=== PATIENT | female | born 1950 | race Caucasian/White ===

== ENCOUNTER 2016-11-02 20:32 | Emergency (ER) | payer MEDICARE ==
[2016-11-02] MEDS ORDERED: KETOROLAC 30 MG/ML VIAL IVP ONE (21:06)
[2016-11-02 21:17] LABS: BASO % 0.3 % (0-6); EOS % 2.1 % (0-6); GRAN % 57.3 % (47-80); HEMATOCRIT 35.5 % (35.0-47.0); HEMOGLOBIN 12.1 gm/dl (11.6-16.0); LYMPH % 35.1 % (16-45); MEAN CELL VOLUME 92.2 fl (81-97); MEAN CORPUSCULAR HEMOGLOBIN 31.4 pg (27-33); MEAN CORPUSCULAR HGB CONC 34.1 g/dl (32-36); MEAN PLATELET VOLUME 10.9 fl (7.4-10.4); MONO % 5.2 % (0-9); PLATELET COUNT 204 K/uL (130-400); RED BLOOD COUNT 3.85 M/uL (3.80-5.40); RED CELL DISTRIBUTION WIDTH 12.5 % (11.5-14.5); WHITE BLOOD COUNT W/O DIFF 6.6 K/uL (4.2-12.2)
[2016-11-02 21:31] LABS: ANION GAP 9.9 (7-16); BLOOD UREA NITROGEN 19 mg/dL (7-17); CARBON DIOXIDE 26.1 mmol/L (22-30); CREATINE PHOSPHOKINASE 54 U/L (30-135); CREATININE 0.8 mg/dL (0.52-1.04); EST GLOMERULAR FILTRATION RATE > 60 ml/min; GLUCOSE,RANDOM 95 mg/dL (70-110)
[2016-11-02 21:43] LABS: CKMB 0.9 ug/L (0-6)
[2016-11-02 21:46] LABS: TROPONIN I < 0.012 ng/mL (0.00-0.034)
[2016-11-02] MEDS ORDERED: NITROGLYCERIN 0.4MG SL TABLET #25 BTL SL ONE (22:44)
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
[2016-11-02] MEDS: NITROGLYCERIN 0.4MG SL TABLET #25 BTL SL ONE ×2 (23:26→23:36)
[2016-11-03] MEDS ORDERED: ACETAMINOPHEN 500 MG TABLET PO ONE (01:18)
--- NOTE | 2016-11-05 09:52 | CT ANGIOGRAM REPORT ---
EXAM: CT ANGIOGRAPHY OF THE THORAX HISTORY: SHORTNESS OF BREATH AND CHEST PAIN. TECHNIQUE: CT angiography of the thorax was performed following intravenous administration of 85 ml of Omnipaque 350 contrast. Coronal and sagittal post process MIP images were performed on an independent workstation as part of this examination. Comparison: Chest x-ray dated 09/20/16. FINDINGS: No pulmonary emboli are seen. No aortic aneurysm or aortic dissection. No enlarged mediastinal or hilar lymph nodes identified. Linear atelectatic or fibrotic changes seen at the left lung base and at the medial margin of the right middle lobe. No lung mass or lung nodule identified. The heart is enlarged. There is no pleural or pericardial effusion. Limited upper abdominal images demonstrate parapelvic renal cysts on the left. The upper abdomen is otherwise unremarkable. IMPRESSION: 1. NO PULMONARY EMBOLISM. NO AORTIC ANEURYSM OR AORTIC DISSECTION. NO ACUTE THORACIC PROCESS. 2. THE HEART IS ENLARGED. 3. THERE ARE A FEW CORONARY ARTERY CALCIFICATIONS PRESENT. 4. SMALL AREAS OF ATELECTASIS OR SCARRING AT THE LUNG BASES BILATERALLY. 5. SEE ABOVE FOR FULL DISCUSSION. JOB NUMBER: [id number] [facility]
== END 2016-11-03 01:37 | disposition short-term general hospital (02) ==
LOC: ER 20:32
DX: R07.9 Chest pain, unspecified (principal); R11.0 Nausea; R06.02 Shortness of breath; R42 Dizziness and giddiness
CPT/HCPCS: 99285 ×2; 96374; 82550; 85025; 82553; 84484; 80048; 85379; 71275; 93005; 93010; Q9967; J1885

== ENCOUNTER 2016-11-10 12:16 | Emergency (ER) | payer MEDICARE ==
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
--- NOTE | 2016-11-12 10:05 | RADIOLOGY REPORT ---
EXAM: LEFT ELBOW, THREE VIEWS HISTORY: PAIN AND REDDENING ANTECUBITAL LEFT ELBOW FOR FOUR DAYS. ASSESS FOR FOREIGN BODY. TECHNIQUE: Three views of the left elbow were obtained. Comparison: None. Encounter: Initial. FINDINGS: No radiodense foreign body. No fracture. No soft tissue gas. Equivocal displacement of the left anterior humeral fat pad. IMPRESSION: 1. NO ACUTE OSSEOUS ABNORMALITY OF THE LEFT ELBOW. WITH NO RADIODENSE FOREIGN BODIES. 2. EQUIVOCAL SMALL LEFT ELBOW JOINT EFFUSION. JOB NUMBER: [id number] MTDD
== END 2016-11-10 14:10 | disposition home or self-care (01) ==
LOC: ER 12:16
DX: T80.1XXA Vascular complications following infusion, transfusion and therapeutic injection, initial encounter (principal); M25.522 Pain in left elbow; I80.8 Phlebitis and thrombophlebitis of other sites
CPT/HCPCS: 99283

== ENCOUNTER 2018-05-15 12:00 | Emergency (ER) | payer MEDICARE ==
[2018-05-15 12:47] LABS: BASO % 0.4 % (0-6); EOS % 3.1 % (0-6); GRAN % 59.3 % (47-80); HEMATOCRIT 38.5 % (35.0-47.0); HEMOGLOBIN 12.6 gm/dl (11.6-16.0); LYMPH % 31.7 % (16-45); MEAN CELL VOLUME 91.9 fl (81-97); MEAN CORPUSCULAR HEMOGLOBIN 30.1 pg (27-33); MEAN CORPUSCULAR HGB CONC 32.7 g/dl (32-36); MEAN PLATELET VOLUME 10.5 fl (7.4-10.4); MONO % 5.5 % (0-9); PLATELET COUNT 170 K/uL (130-400); RED BLOOD COUNT 4.19 M/uL (3.80-5.40); RED CELL DISTRIBUTION WIDTH 12.7 % (11.5-14.5); WHITE BLOOD COUNT W/O DIFF 4.8 K/uL (4.2-12.2)
[2018-05-15 12:59] LABS: PROTHROMBIN TIME (PATIENT) 9.9 SECONDS (9.5-12.1)
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
[2018-05-15 13:40] LABS: BLOOD UREA NITROGEN 15 mg/dL (8-23); CREATININE 0.7 mg/dL (0.5-0.9); EST GLOMERULAR FILTRATION RATE > 60 mL/min
[2018-05-15 13:42] LABS: GLUCOSE,RANDOM 98 mg/dL (74-109)
--- NOTE | 2018-05-17 21:05 | US VENOUS DOPPLER REPORT ---
EXAM: ULTRASOUND VENOUS DOPPLER LOWER EXT RT HISTORY: PAIN AND SWELLING. TECHNIQUE: Sonographic evaluation of the deep venous system of the right lower extremity was performed with the addition of Doppler, compression, and augmentation. FINDINGS: There is normal compression, augmentation, and blood flow identified in the deep venous system of the right lower extremity. IMPRESSION: NEGATIVE FOR DEEP VEIN THROMBOSIS IN THE RIGHT LOWER EXTREMITY. JOB NUMBER: [id number] MTDD
== END 2018-05-15 15:13 | disposition home or self-care (01) ==
LOC: ER 12:00
DX: L03.115 Cellulitis of right lower limb (principal); M79.661 Pain in right lower leg
CPT/HCPCS: 80048; 85025; 85379; 85610; 99283; 99284

== ENCOUNTER 2018-08-06 12:35 | Emergency (ER) | payer MEDICARE ==
[2018-08-06] MEDS ORDERED: KETOROLAC 30 MG/ML VIAL IM ONE (12:53)
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
--- NOTE | 2018-08-08 07:23 | RADIOLOGY REPORT ---
DATE: 08/06/2018. EXAM: LEFT FOOT. HISTORY: PAIN. TECHNIQUE: Three views of the left foot were provided. FINDINGS: No evidence of fracture or dislocation. There is osteopenia. There is degenerative change of the tarsal bones. There is a large calcaneal spur. IMPRESSION: 1. OSTEOPENIA. 2. NO EVIDENCE OF FRACTURE. 3. SOFT TISSUE SWELLING. 4. LARGE CALCANEAL SPUR. Job Number: [id number] [facility]
--- NOTE | 2018-08-08 07:32 | CT SCAN REPORT ---
DATE: 08/06/2018. EXAM: CT OF THE CHEST WITHOUT CONTRAST. HISTORY: Injury. TECHNIQUE: Sequential axial images were obtained from the thoracic inlet through the bilateral adrenal glands without intravenous contrast administration. FINDINGS: Mediastinal vasculature appears normal. No mediastinal or hilar lymphadenopathy. The heart and pericardium appear normal. There is scarring in the lung bases. No infiltrate or pleural effusion. No pneumothorax. Exaggerated thoracic kyphosis. Single sclerotic focus in the mid thoracic spine. No evidence of fracture. The sternum is intact. No rib fracture deformities are appreciated. IMPRESSION: NO ACUTE INTRATHORACIC DISEASE PROCESS. NO FRACTURE DEFORMITY. [facility] [id number] [facility]
== END 2018-08-06 14:06 | disposition home or self-care (01) ==
LOC: ER 12:35
DX: S20.211A Contusion of right front wall of thorax, initial encounter (principal); M79.675 Pain in left toe(s); W01.198A Fall on same level from slipping, tripping and stumbling with subsequent striking against other object, initial encounter; Y92.481 Parking lot as the place of occurrence of the external cause; Z87.891 Personal history of nicotine dependence
CPT/HCPCS: 99283; 96372; 99284; 73630; 71250; J1885

== ENCOUNTER 2019-01-18 10:08 | Emergency (ER) | payer MEDICARE ==
[2019-01-18] MEDS ORDERED: ORPHENADRINE CITRATE 60MG/2ML VIAL IM ONE (10:42)
[2019-01-18] MEDS ORDERED: KETOROLAC 30 MG/ML VIAL IM ONE (10:42)
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
--- NOTE | 2019-01-20 12:40 | RADIOLOGY REPORT ---
EXAM: CERVICAL SPINE, FIVE VIEWS HISTORY: PATIENT HAS NECK PAIN. PATIENT HAS A HISTORY OF C7 FRACTURE. TECHNIQUE: Five views of the cervical spine are provided along with comparison CT scan of the cervical spine dated 05/31/17. FINDINGS: Osteopenia of the osseous structures is noted. Multilevel disk space height loss with end plate sclerosis and anterior vertebral body osteophyte formation is noted compatible with multilevel degenerative disk disease. The prevertebral soft tissue is unremarkable. There is no radiographic evidence of a fracture or dislocation of the cervical spine. The atlantodental interval is narrowed compatible with osteoarthritic changes. The airways are patent. Oblique views demonstrate mild osteophytes within the bilateral upper cervical neural foramina. Calcified granuloma is noted within the right upper lobe. Open mouth view demonstrates the dens to be located symmetrically between the lateral masses. Advanced osteoarthritic changes of the right shoulder are identified. IMPRESSION: MULTILEVEL DEGENERATIVE DISK DISEASE OF THE CERVICAL SPINE IS NOTED WITHOUT RADIOGRAPHIC EVIDENCE OF AN ACUTE PROCESS INVOLVING THE CERVICAL SPINE. JOB NUMBER: [id number] [facility]
== END 2019-01-18 12:46 | disposition home or self-care (01) ==
LOC: ER 10:08
DX: M43.6 Torticollis (principal)
CPT/HCPCS: 72050; 96372; 99284; J1885; J2360

== ENCOUNTER 2019-07-01 15:06 | Emergency (ER) | payer MEDICARE ==
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
[2019-07-01] MEDS ORDERED: ASPIRIN 81 MG CHEWABLE TABLET PO ONE (15:49)
[2019-07-01 15:59] LABS: ABSOLUTE NEUTROPHIL COUNT 3.08; BASO % 0.4 % (0-6); EOS % 3.7 % (0-6); GRAN % 64.1 % (47-80); HEMATOCRIT 36.6 % (35.0-47.0); HEMOGLOBIN 11.9 gm/dl (11.6-16.0); LYMPH % 24.3 % (16-45); MEAN CELL VOLUME 92.9 fl (81-97); MEAN CORPUSCULAR HEMOGLOBIN 30.2 pg (27-33); MEAN CORPUSCULAR HGB CONC 32.5 g/dl (32-36); MEAN PLATELET VOLUME 10.3 fl (7.4-10.4); MONO % 7.5 % (0-9); PLATELET COUNT 188 K/uL (130-400); RED BLOOD COUNT 3.94 M/uL (3.80-5.40); RED CELL DISTRIBUTION WIDTH 12.6 % (11.5-14.5); WHITE BLOOD COUNT W/O DIFF 4.8 K/uL (4.2-12.2)
[2019-07-01 16:12] LABS: BLOOD UREA NITROGEN 10 mg/dL (8-23); CREATININE 0.7 mg/dL (0.5-0.9); EST GLOMERULAR FILTRATION RATE > 60 mL/min
[2019-07-01 16:15] LABS: GLUCOSE,RANDOM 100 mg/dL (74-109)
--- NOTE | 2019-07-01 17:06 | RADIOLOGY REPORT ---
EXAMINATION: Frontal and Lateral Chest EXAM DATE: 07/01/2019 4:28 PM INDICATION: chest pain FINDINGS: Comparison with 09/20/2016. Frontal and lateral views show clear lungs, normal heart size, and normal hilar and mediastinal structures. Bone island again incidentally noted in the T8 vertebral body. IMPRESSION: Normal chest. Dictated by: Tato Ch MD on 07/01/2019 5:01 PM. .
== END 2019-07-01 17:50 | disposition home or self-care (01) ==
LOC: ER 15:06
DX: M94.0 Chondrocostal junction syndrome [Tietze] (principal); R10.13 Epigastric pain; R07.9 Chest pain, unspecified; R20.0 Anesthesia of skin; R05 Cough; J02.9 Acute pharyngitis, unspecified
CPT/HCPCS: 71046; 80048; 84484; 85025; 85730; 93005; 93010; 99284